=== PATIENT | male | born 1990 | race Caucasian/White ===

== ENCOUNTER 2017-05-21 19:04 | Emergency (ER) | payer OTHER ==
[~2017-05-21] VITALS: Ht 180.3 cm; Wt 95.9 kg
[2017-05-21 19:08] VITALS: TEMP 36.7; Ht 180.3 cm; Wt 95.9 kg
[2017-05-21] MEDS ORDERED: ALBUTEROL HFA 8 GM INHALER INH ONE (19:45)
--- NOTE | 2017-05-21 19:48 | EMERGENCY ROOM VISIT NOTE ---
History Report prepared by Ashley: Ulysses Yeboah Under the Supervision of: Dr. Nelson Corbett M.D. First contact with patient: 19:34 Chief Complaint: RESPIRATORY PROBLEMS Stated Complaint: CAN'T BREATHE Nursing Triage Summary: Cough, sore throat and SOB for three days. Patient was seen at Urgent care and given amoxicillin. Patient states that he's feeling worse tonight, "I don't really trust them over there so i'm here" History of Present Illness The patient is a 26 year old male who presents to the Emergency Room with complaints of constant respiratory problems beginning 6 days ago. The patient sates that he went to urgent care 3 days ago and was diagnosed with bronchitis. He notes that he was prescribed amoxicillin. He reports that it feels like someone is "long-term choking him." The patient also complains of cough, congestion, sore throat, mild runny nose, and difficulty hearing. He states that he has been taking Mucinex with mild relief of his symptoms. He denies any known sick contacts. Source of History: patient Onset: 6 days ago Position: chest Quality: other (respiratory problems) Timing: constant Modifying Factors (Relieving): other (Mucinex provided mild relief of his symptoms) Associated Symptoms: + sorethroat, + cough Note: He also complains of congestion, a mild runny nose, and difficulty hearing. Review of Systems See HPI for pertinent positives & negatives. A total of 10 systems reviewed and were otherwise negative. Past Medical & Surgical Medical Problems: (1) Bronchitis Family History No pertinent family history stated. Social History Smoking Status: Never Smoker Marital Status: single Occupation Status: employed Current/Historical Medications Scheduled Albuterol Hfa (Ventolin Hfa), 3 PUFFS INH Q6H Amoxicillin & Pot Clavulanate (Augmentin 875-125 mg), 1 TAB PO BID Azithromycin (Zithromax Z-Jason), 0 PO UD Prednisone (Prednisone), 0 PO DAILY Scheduled PRN Benzonatate (Tessalon Perles), 1-2 CAP PO Q4 PRN for Cough Dextromethorphan Polistirex (Delsym), 5 ML PO DIRECTED PRN for Cough Dextromethorphan-Guaifenesin (Mucinex Dm), 1 TAB PO Q12 PRN for CONGESTION Ibuprofen (Advil), 200-600 MG PO Q4H PRN for Pain or Fever Rqtccppbhbozh-[id number]-Yd W/ Apap (Vicks Dayquil Severe Cold), 1 TAB PO DIRECTED PRN for COLD SYMPTOMS Allergies Coded Allergies: No Known Allergies (Unverified , 05/21/17) Physical Exam Vital Signs Date Time Temp Pulse Resp B/P (MAP) Pulse Ox O2 Delivery O2 Flow Rate FiO2 05/21/17 20:16 72 16 130/90 98 Room Air 05/21/17 19:14 96 Room Air 05/21/17 19:08 36.7 91 18 153/96 96 Room Air Physical Exam GENERAL: Patient is in no acute distress. HEENT: No acute trauma, normocephalic atraumatic, mucous membranes moist, no nasal congestion, no scleral icterus. TMs clear bilaterally, no throat erythema or exudate. NECK: No stridor, no adenopathy, no meningismus, trachea is midline. LUNGS: Clear to auscultation bilaterally, no wheeze, no rhonchi, breath sounds equal. Moist cough noted. HEART: Without murmurs gallops or rubs, regular rate and rhythm. ABDOMEN: Soft, nontender, bowel sounds positive, no hernias, no peritonitis. EXTREMITIES: No cyanosis or edema, full range of motion of all the joints without pain or difficulty, no signs for acute trauma. NEUROLOGIC: Oriented x 3, no acute motor or sensory deficits, no focal weakness. SKIN: No rash, no jaundice, no diaphoresis. Medical Decision & Procedures ER Provider Diagnostic Interpretation: Radiology results as stated below per my review and radiologist interpretation: SINGLE VIEW CHEST FINDINGS: An AP, portable, upright chest radiograph is obtained. No prior studies are available for comparison at the time of dictation. The cardiomediastinal silhouette is unremarkable. The lungs and pleural spaces are clear. No pneumothorax is seen. The bony thorax is grossly intact. IMPRESSION: No active disease in the chest. Electronically signed by: Nelson Glasgow M.D. 05/21/2017 8:52 PM Medications Administered Medications (Trade) Dose Ordered Sig/Sherrie Route Start Time Stop Time Status Last Admin Dose Admin Prednisone (PredniSONE TAB) 60 mg NOW STAT PO 05/21/17 19:44 05/21/17 19:46 DC 05/21/17 19:53 60 MG Albuterol (Ventolin Hfa Inhaler) 3 puffs NOW ONCE INH 05/21/17 19:45 05/21/17 19:47 DC 05/21/17 19:53 3 PUFFS Azithromycin (Zithromax Tab) 500 mg NOW STAT PO 05/21/17 21:12 05/21/17 21:13 DC 05/21/17 22:02 500 MG Benzonatate (Tessalon Perles Cap) 100 mg NOW ONCE PO 05/21/17 21:45 05/21/17 21:46 DC 05/21/17 22:02 100 MG ED Course 1938: The patient was evaluated in room B8. A complete history and physical exam was performed. 1943: Prednisone 60mg PO 1944: Albuterol 3 puffs INH 2111: Azithromycin 500mg PO 2128: Reevaluated the patient. Discussed results and discharge instructions: He verbalized understanding and agreement. The patient is ready for discharge. 2144: Benzonatate 100mg PO Medical Decision Differential diagnoses include: pneumonia, bronchitis, pneumothorax, pharyngitis , otitis media, and sinusitis. The patient presents with a persistent cough for about a week. He is on amoxicillin, he has had no relief. On exam, his lungs were clear, he was not toxic or febrile. He was not hypoxic. He did have a moist cough. Chest film does not show pneumonia, no pneumothorax or CHF. The patient was given albuterol via MDI, prednisone orally, Zithromax orally and oral Tessalon Perles. He looks well. The patient likely has an acute bronchitis or an early pneumonia not seen on chest film. He is failing outpatient treatment. He will be discharged with albuterol, prednisone and Zithromax. Tessalon pearls for cough. If worsening, he can return. He will stop the amoxicillin. Medication Reconcilliation Current Medication List: was personally reviewed by me Blood Pressure Screening Patient's blood pressure: Elevated blood pressure Blood pressure disposition: Elevated BP felt to be situational Impression Primary Impression: Acute bronchitis Scribe Attestation The scribe's documentation has been prepared under my direction and personally reviewed by me in its entirety. I confirm that the note above accurately reflects all work, treatment, procedures, and medical decision making performed by me. Departure Information Dispostion Home / Self-Care Prescriptions Prednisone (Prednisone) 20 Mg Tab 0 PO DAILY, #18 TAB 3 DAILY FOR 3 DAYS, THEN 2 DAILY FOR 3 DAYS, THEN 1 DAILY FOR 3 DAYS. Prov: Nelson Corbett M.D. 05/21/17 Azithromycin (ZITHROMAX Z-JASON) 250 Mg Tab 0 PO UD, #1 PKT Prov: Nelson Corbett M.D. 05/21/17 Benzonatate (Tessalon Perles) 100 Mg Cap 1-2 CAP PO Q4 Y for Cough, #20 CAP Prov: Nelson Corbett M.D. 05/21/17 Albuterol Hfa (VENTOLIN HFA) 200 Puffs/25835 Mcg Aers 3 PUFFS INH Q6H, #1 INHALER 1 Refill Prov: Nelson Corbett M.D. 05/21/17 Referrals No Doctor, Assigned (PCP) Forms HOME CARE DOCUMENTATION FORM, IMPORTANT VISIT INFORMATION, WORK / SCHOOL INSTRUCTIONS Patient Instructions My [facility] Additional Instructions stop amoxicillin start zithromax use prednisone as directed albuterol 3 puffs every 4 hours tessalon tabs for cough rest stay well hydrated return if worsening chest film today was clear
[2017-05-21] MEDS ORDERED: DEXT30TA7 PO (20:26)
[2017-05-21] MEDS ORDERED: IBUP-1050 PO (20:26)
[2017-05-21] MEDS ORDERED: DEXT5LIQ23 PO (20:26)
[2017-05-21] MEDS ORDERED: AMOX875T PO (20:26)
[2017-05-21] MEDS ORDERED: PHEN-622 PO (20:26)
--- NOTE | 2017-05-21 20:53 | DIAGNOSTIC IMAGING REPORT ---
SINGLE VIEW CHEST CLINICAL HISTORY: Cough and dyspnea. FINDINGS: An AP, portable, upright chest radiograph is obtained. No prior studies are available for comparison at the time of dictation. The cardiomediastinal silhouette is unremarkable. The lungs and pleural spaces are clear. No pneumothorax is seen. The bony thorax is grossly intact. IMPRESSION: No active disease in the chest. Electronically signed by: Nelson Glasgow M.D. 05/21/2017 8:52 PM Dictated Date/Time: 05/21/2017 8:52 PM
[2017-05-21] MEDS ORDERED: AZITHROMYCIN 250 MG TAB PO STA (21:12)
[2017-05-21] MEDS ORDERED: PRED20TA PO (21:37)
[2017-05-21] MEDS ORDERED: BENZ100C84 PO (21:37)
[2017-05-21] MEDS ORDERED: VNTHFA/IN INH (21:37)
[2017-05-21] MEDS ORDERED: AZITTAB PO (21:37)
[2017-05-21] MEDS ORDERED: BENZONATATE 100MG CAP PO ONE (21:45)
[2017-05-21 22:19] VITALS: BP 142/90; PULSE 83; O2SAT 97
== END 2017-05-21 22:21 | disposition home or self-care (01) ==
LOC: C.EDB 19:05
DX: J20.9 Acute bronchitis, unspecified (principal)